=== PATIENT | male | born 1940 | race Two or more races ===

== ENCOUNTER → 2022-10-04 | Outpatient (CLI) | payer MEDICARE | END | disposition home or self-care (01) | LOC: XYW 09:31 | PROVIDERS: ATTEND Internal Medicine | DX: I08.0 Rheumatic disorders of both mitral and aortic valves (principal); I10 Essential (primary) hypertension | CPT/HCPCS: 93306 ==

== ENCOUNTER → 2022-12-17 | Outpatient (CLI) | payer MEDICARE ==
[~2022-12-17] VITALS: Ht 190.5 cm; Wt 83.9 kg
[~2022-12-17] MED LIST: ADENOSINE 70 MG in GIVE UN-DILUTED 0 ML IV STA
[2022-12-17 10:19] VITALS: BP 121/64
== END | disposition home or self-care (01) ==
LOC: XYW 08:20
PROVIDERS: ATTEND Internal Medicine
DX: I11.0 Hypertensive heart disease with heart failure (principal); I50.22 Chronic systolic (congestive) heart failure; I42.0 Dilated cardiomyopathy; E11.65 Type 2 diabetes mellitus with hyperglycemia; Z95.0 Presence of cardiac pacemaker
CPT/HCPCS: 78452; 93017; A9500; J0153

== ENCOUNTER → 2022-12-28 | Outpatient (CLI) | payer MEDICARE | END | disposition home or self-care (01) | LOC: LAB 13:18 | PROVIDERS: ATTEND Internal Medicine | DX: I11.0 Hypertensive heart disease with heart failure (principal); I50.32 Chronic diastolic (congestive) heart failure; E11.9 Type 2 diabetes mellitus without complications | CPT/HCPCS: 36415; 83036; 84403 ==